=== PATIENT | male | born 1995 | race Caucasian/White ===

== ENCOUNTER 2022-03-05 00:04 | Emergency (ER) | payer OTHER ==
[2022-03-05 01:00] LABS: CORONAVIRUS COVID-19 NAA NEGATIVE (NEGATIVE)
== END 2022-03-05 03:29 | disposition home or self-care (01) ==
LOC: JD.ED 00:04
DX: J02.9 Acute pharyngitis, unspecified (principal); Z86.16 Personal history of COVID-19; Z20.822 Contact with and (suspected) exposure to COVID-19
CPT/HCPCS: 0241U; 87651; 99283